=== PATIENT | male | born 1985 | race Caucasian/White ===

== ENCOUNTER 2019-03-01 15:13 | Emergency (ER) | payer BC ==
[2019-03-01 15:35] VITALS: BP 118/91
--- NOTE | 2019-03-01 15:43 | UC ---
Laceration HPI - HPI Summary HPI Summary: Patient is a 33-year-old male that sustained a laceration to his volar aspect of the left wrist with a razor just prior to arrival. His injury occurred at work. His last tetanus shot was about 4 year to 5 years ago. He is right handed. He is having only mild pain. 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 Had no arterial bleeding. Denies any distal numbness or tingling. He states all his fingers seem to work correctly. - History Of Current Complaint Chief Complaint: UCLaceration Stated Complaint: Arm laceration Time Seen by Provider: 03/01/19 15:34 Hx Obtained From: Patient Laceration Location: Wrist - L Mechanism Of Injury: Sharp Trauma Onset/Duration: Sudden Onset Severity: Mild Pain Intensity: 0 Pain Scale Used: 0-10 Numeric Aggravating Factors: Nothing Hands: 1 - 3 cm laceration - Allergies/Home Medications Allergies/Adverse Reactions: Allergies Allergy/AdvReac Type Severity Reaction Status Date / Time No Known Allergies Allergy Verified 03/01/19 15:31 Home Medications: Home Medications Albuterol HFA INHALER* [Ventolin HFA Inhaler*] 1 puff INH Q4H PRN 03/01/19 [ History Confirmed 03/01/19] Mometasone 220 MCG MDI * [Asmanex 220 MCG MDI *] 1 puff INH DAILY 03/01/19 [ History Confirmed 03/01/19] PMH/Surg Hx/FS Hx/Imm Hx Previously Healthy: Yes - Surgical History Surgical History: Yes Surgery Procedure, Year, and Place: T&A A CHILD - Family History Known Family History: Positive: Hypertension, Non-Contributory - Social History Alcohol Use: Occasionally Substance Use Type: Marijuana Substance Use Comment - Amount & Last Used: occasionally Smoking Status (MU): Light Every Day Tobacco Smoker - Immunization History Most Recent Tetanus Shot: unknown Review of Systems All Other Systems Reviewed And Are Negative: Yes Constitutional: Positive: Negative Skin: Positive: Negative Eyes: Positive: Negative ENT: Positive: Negative Respiratory: Positive: Negative Cardiovascular: Positive: Negative Gastrointestinal: Positive: Negative Genitourinary: Positive: Negative Motor: Positive: Negative Neurovascular: Positive: Negative Musculoskeletal: Positive: Negative Neurological: Positive: Negative Psychological: Positive: Negative Physical Exam Triage Information Reviewed: Yes Appearance: Well-Appearing, No Pain Distress, Well-Nourished Vital Signs: Initial Vital Signs Temp 98.6 F 03/01/19 15:33 Pulse 88 03/01/19 15:33 Resp 18 03/01/19 15:33 BP 118/91 03/01/19 15:33 Pulse Ox 98 03/01/19 15:33 Vital Signs Reviewed: Yes Eyes: Positive: Conjunctiva Clear ENT: Positive: Hearing grossly normal. Negative: Nasal congestion, Nasal drainage, Trismus, Muffled voice, Hoarse voice Dental Exam: Normal Neck: Positive: Supple Respiratory: Positive: Lungs clear, Normal breath sounds, No respiratory distress, No accessory muscle use Cardiovascular: Positive: RRR, No Murmur Musculoskeletal: Positive: ROM Intact, No Edema Neurological: Positive: Alert, Other: - distal to injury NVI, FROM left wrist and all digits Psychological Exam: Normal Skin Exam: Other - see image Laceration Repair - Laceration Repair 1 Description: Linear Laceration Size After Repair: Length (cm) - 3, Width (mm) - 7, Depth (mm) - 3 Modified For Repair: No Type Injection: Local Anesthesia Used: 1.0% Lido Additive Used (in ml): Epi Cleansing Completed Via Routine Prep: Yes Irrigation With Pressure Irrigation Device: Yes Closure Material: Sutures Closure Method: Multilayer Suture Of: Skin - 6 5-0 nylon, SQ - 3 4-o vicryl Suture Type: Nylon, Vicryl Laceration Course/Dx - Diagnosis Provider Diagnosis: Laceration of left wrist Discharge - Sign-Out/Discharge Documenting (check all that apply): Patient Departure All imaging exams completed and their final reports reviewed: No Studies - Discharge Plan Condition: Stable Disposition: HOME Patient Education Materials: Laceration (ED) Forms: *Work Release Additional Instructions: rest remove dressin gin about 24 hours then gently clean twice daily with soap and water gently dry apply a thin film of ointment (i like aquaphor healing ointment or polysporin) apply a dressing recheck here Tuesday I suggest sutures get removed in 10-12 days - Billing Disposition and Condition Condition: STABLE Disposition: Home
[2019-03-01] MEDS ORDERED: Lidocain 1% EPI 1:100,000 * 30 ML MDV INJ ONE ×2 (15:50→15:58)
[2019-03-01] MEDS ORDERED: Lidocain 1% EPI 1:100,000 * 30 ML MDV ONE (16:01)
== END 2019-03-01 16:52 | disposition home or self-care (01) ==
LOC: UCEAST 15:13
DX: S61.512A Laceration without foreign body of left wrist, initial encounter (principal); W26.0XXA Contact with knife, initial encounter; Y93.9 Activity, unspecified; Y92.89 Other specified places as the place of occurrence of the external cause; Y99.0 Civilian activity done for income or pay; F17.210 Nicotine dependence, cigarettes, uncomplicated
CPT/HCPCS: 12032; 99211; G0463

== ENCOUNTER 2019-03-05 13:51 | Emergency (ER) | payer BC ==
[2019-03-05 14:02] VITALS: BP 115/75
--- NOTE | 2019-03-05 14:07 | UC ---
HPI Wound/Suture Re-check - HPI Summary HPI Summary: 33 y/o male presents to the urgent care for wound recheck s/p laceration repair of left wrist on 03/01/2019. Pt reports he wants to make sure wound is healing well. Pt denies fever, wound discharge, pain. He can move left wrist w/o any difficulty. He has been applying Bacitracin oint and changing dressing as directed 2X/day. Pt denies SOB, chest pain, abdominal pain, N/V/d. - History Of Current Complaint Chief Complaint: UCWounds Stated Complaint: WOUND RECHECK Time Seen by Provider: 03/05/19 14:06 Hx Obtained From: Patient Onset/Duration: Sudden Onset, Lasting Days - 4 days laceration to left wrist, laceration repair done here at the clinic on 03/01/2019, Still Present Severity: Mild Pain Intensity: 0 Pain Scale Used: 0-10 Numeric Surgery Date: 03/01/19 - Allergies/Home Medications Allergies/Adverse Reactions: Allergies Allergy/AdvReac Type Severity Reaction Status Date / Time No Known Allergies Allergy Verified 03/05/19 14:02 PMH/Surg Hx/FS Hx/Imm Hx Previously Healthy: Yes Respiratory History: Asthma - Surgical History Surgical History: Yes Surgery Procedure, Year, and Place: T&A A CHILD - Family History Known Family History: Positive: Hypertension, Non-Contributory - Social History Occupation: Employed Full-time Alcohol Use: Occasionally Substance Use Type: Marijuana Substance Use Comment - Amount & Last Used: occasionally Smoking Status (MU): Never Smoked Tobacco - Immunization History Hx Tetanus, Diphtheria Vaccination: Yes - 03/01/2019 Review of Systems All Other Systems Reviewed And Are Negative: Yes Constitutional: Positive: Negative Skin: Positive: Other - lefty wrist w/ laceration repair healing well Eyes: Positive: Negative ENT: Positive: Negative Respiratory: Positive: Negative Cardiovascular: Positive: Negative Gastrointestinal: Positive: Negative Genitourinary: Positive: Negative Motor: Positive: Negative Neurovascular: Positive: Negative Musculoskeletal: Positive: Negative Neurological: Positive: Negative Psychological: Positive: Negative Is Patient Immunocompromised?: No Physical Exam - Summary Physical Exam Summary: Vital Signs Reviewed: Yes General: well developed, well nourished male sitting in the examining table w/o any apparent distress Eye Exam: Normal Eyes: Positive: Conjunctiva Clear - PERRLA, EOMI, fundi grossly normal ENT: Positive: Normal ENT inspection, Hearing grossly normal, Pharynx normal, TMs normal Neck: Positive: Supple, Nontender, No Lymphadenopathy Respiratory: Positive: Chest non-tender, Lungs clear, Normal breath sounds, No respiratory distress Cardiovascular: Positive: RRR, No Murmur, Pulses Normal, Brisk Capillary Refill Abdomen Description: Positive: Nontender, No Organomegaly, Soft. Negative: CVA Tenderness (R), CVA Tenderness (L) Bowel Sounds: Positive: Present Musculoskeletal: Positive: Strength Intact, ROM Intact, No Edema Neurological: Positive: Alert, Muscle Tone Normal Psychological Exam: Normal Skin: Positive: volar aspect of the left wrist w/ a linear laceration repair w/ 6 stitches in placed.,Wound healing well with crusting and moderate granulation over, non tender to palpation, No sings of infection. FROM of LF wrist , sensation intact, capillary refill brisk, and pulses WNL. Triage Information Reviewed: Yes Vital Signs: Initial Vital Signs Temp 98.7 F 03/05/19 13:58 Pulse 80 03/05/19 13:58 Resp 18 03/05/19 13:58 BP 115/75 03/05/19 13:58 Pulse Ox 97 03/05/19 13:58 Course/Dx - Course Course Of Treatment: 33 y/o male presents to the urgent care for wound recheck s/p laceration repair of left wrist on 03/01/2019. Pt reports he wants to make sure wound is healing well. Pt denies fever, wound discharge, pain. He can move left wrist w/o any difficulty. He has been applying Bacitracin oint and changing dressing as directed 2X/day. Pt denies SOB, chest pain, abdominal pain, N/V/d.Hx obtained. Wound healing well with crusting and moderate granulation over, non tender to palpation, [address] No sings of infection. Bacitracin topical oint applied over and cover with sterile gauze. Pt advised if redness, pain or fever develops to return to the urgent care or f/u with PCP for further treatment. F/ u suture removal as advised in 8 days. Pt understood and agreed with plan of care - Differential Dx - Laceration/Wound Differential Diagnoses: Abscess, Cellulitis, Healing Wound, Suture Removal - Diagnosis Provider Diagnosis: Encounter for wound re-check Discharge - Sign-Out/Discharge Documenting (check all that apply): Patient Departure - D/C home All imaging exams completed and their final reports reviewed: No Studies - Discharge Plan Condition: Stable Disposition: HOME Patient Education Materials: Acute Wound Care (ED) Referrals: Roxann Servin MD [Primary Care Provider] - 1 Week Additional Instructions: 1-Please continue applying Bacitracin topical antibiotic over the wound. Keep wound clean and dry 2- F/u suture removal as told in 8 days w/ your PCP or here at the urgent care. 3- If you develop fever or redness around your wound please return to the Urgent care for further management. - Billing Disposition and Condition Condition: STABLE Disposition: Home
== END 2019-03-05 14:38 | disposition home or self-care (01) ==
LOC: UCEAST 13:51
DX: S61.512D Laceration without foreign body of left wrist, subsequent encounter (principal); X58.XXXD Exposure to other specified factors, subsequent encounter
CPT/HCPCS: 99211; G0463